=== PATIENT | male | born 1980 ===

== ENCOUNTER 2025-05-06 16:24 | Outpatient (REF) | payer BC, SELFPAY ==
[2025-05-06 21:03] LABS: ESR 3 mm/hr (0-15)
[2025-05-06 21:15] LABS: C-Reactive Protein < 0.50 mg/dL (<or=0.5)
== END 2025-05-06 16:25 | disposition home or self-care (01) ==
LOC: NCHCN 16:24
PROVIDERS: Visit Provider Internal Medicine
DX: R10.9 Unspecified abdominal pain (principal)
CPT/HCPCS: 82784; 83516; 85652; 86140